=== PATIENT | male | born 1975 ===

== ENCOUNTER 2018-11-14 09:30 | Outpatient (CLI) | payer OTHER ==
[~2018-11-14] VITALS: Ht 152.4 cm; Wt 74.8 kg
== END 2018-11-14 09:45 | disposition home or self-care (01) ==
LOC: OFIC 805 09:30
DX: H61.23 Impacted cerumen, bilateral (principal); H90.3 Sensorineural hearing loss, bilateral; H93.13 Tinnitus, bilateral